=== PATIENT | female | born 1975 | race Asian ===

== ENCOUNTER 2017-04-06 00:15 | Inpatient (IN) | payer SELFPAY ==
[~2017-04-06] VITALS: Ht 158 cm; Wt 67.1 kg
[2017-04-06] MEDS ORDERED: PROMETHAZINE 25 MG/ML VIAL IVP PRN (01:40)
[2017-04-06] MEDS ORDERED: NALBUPHINE HYDROCHLORIDE 10 MG/ML VIAL IVP ONE (01:40)
[2017-04-06] MEDS: LACTATED RINGERS 1,000 ML IV SCH ×2 (01:44→02:45)
[2017-04-06] MEDS ORDERED: CITRIC ACID/SODIUM CITRATE 30 ML UDC PO ONE (01:50)
[2017-04-06 02:17] LABS: BASOPHILS # (AUTO) 0.1 K/uL (0.00-0.22); BASOPHILS % (AUTO) 1.4 % (0.0-2.0); EOSINOPHILS # (AUTO) 0.1 K/uL (0-0.4); EOSINOPHILS % (AUTO) 1.3 % (0.0-4.0); HEMATOCRIT 32.3 % (36-48); HEMOGLOBIN 10.5 g/dL (12.0-16.0); LYMPHOCYTES # (AUTO) 1.2 K/uL (2.5-16.5); LYMPHOCYTES % (AUTO) 18.2 % (20.5-51.1); MEAN CORPUSCULAR HEMOGLOBIN 30 pg (27-31); MEAN CORPUSCULAR HGB CONC 32 g/dL (33-37); MEAN CORPUSCULAR VOLUME 91 fL (80-94); MONOCYTES # (AUTO) 0.4 K/uL (0.8-1.0); MONOCYTES % (AUTO) 6.3 % (1.7-9.3); NEUTROPHILS # (AUTO) 4.8 K/uL (1.8-7.7); NEUTROPHILS % (AUTO) 72.8 % (42.2-75.2); PLATELET COUNT (AUTO) 183 K/uL (140-450); RED BLOOD CELL COUNT(AUTO) 3.55 MIL/uL (4.20-5.40); RED CELL DISTRIBUTION WIDTH 14.9 % (11.6-13.7); WHITE BLOOD COUNT (AUTO) 6.6 K/uL (4.8-10.8)
[2017-04-06 02:19] LABS: APPEARANCE,URINE SL CLOUDY (CLEAR); BILIRUBIN,URINE NEGATIVE (NEGATIVE); BLOOD, URINE TRACE-L (NEGATIVE); COLOR,URINE YELLOW (YELLOW); LEUKOCYTE ESTERASE ,URINE TRACE (NEGATIVE); NITRITE, URINE NEGATIVE (NEGATIVE); UGLUCOSE NEGATIVE (NEGATIVE)
[2017-04-06 02:30] LABS: ALBUMIN 2.6 g/dL (3.4-5.0); ANION GAP 14.4 (8-16); CARBON DIOXIDE 21.2 mmol/L (21-32); CREATININE 0.6 mg/dL (0.6-1.3); POTASSIUM 3.6 mmol/L (3.5-5.1); TOTAL BILIRUBIN 0.3 mg/dL (0.0-1.0)
[2017-04-06] MEDS ORDERED: PREN-546 PO ×2 (02:41)
[2017-04-06] MEDS ORDERED: FERR325E14 PO (02:41)
[2017-04-06 02:55] VITALS: BP 115/76
[2017-04-06 03:53] LABS: RBC,URINE 0-5 (RARE) /HPF (0-5)
[2017-04-06 03:54] LABS: WBC,URINE 0-5 (RARE) /HPF (0-5)
[2017-04-06] MEDS ORDERED: CITRIC ACID/SODIUM CITRATE 30 ML UDC ONE (05:37)
[2017-04-06] MEDS ORDERED: ceFAZolin 1,000 MG VIAL ONE (05:38)
[2017-04-06] MEDS ORDERED: ePHEDrine 50 MG/ML VIAL IV ONE (06:00)
[2017-04-06] MEDS ORDERED: OXYTOCIN 10 UNITS/ML VIAL ONE (06:07)
[2017-04-06] MEDS ORDERED: METHYLERGONOVINE 0.2 MG/ML AMP ONE (06:08)
[2017-04-06] MEDS ORDERED: TRIAMCINOLONE 40 MG/ML 5ML VIAL ONE (06:08)
[2017-04-06] MEDS ORDERED: fentaNYL 0.05 MG/ML VIAL ONE (06:14)
[2017-04-06] MEDS ORDERED: MIDAZOLAM 2 MG/2 ML VIAL ONE (06:14)
[2017-04-06] MEDS ORDERED: MORPHINE PRES FREE 10 MG/10 ML AMP IV ONE (06:15)
[2017-04-06] MEDS ORDERED: KETAMINE 500 MG/5 ML VIAL ONE (06:15)
[2017-04-06] MEDS ORDERED: ONDANSETRON 4 MG/2 ML VIAL IVP PRN (06:35)
[2017-04-06] MEDS ORDERED: KETOROLAC 30 MG/ML VIAL IVP PRN (06:35)
[2017-04-06] MEDS ORDERED: diphenhydrAMINE 50 MG/ML VIAL IVP PRN (06:35)
[2017-04-06] MEDS ORDERED: HYDROcodone/APAP 5/325 MG 1 TAB TAB PO PRN (07:05)
[2017-04-06] MEDS ORDERED: MEASLES, MUMPS, AND RUBELLA 1 VIAL SQVAC PRN (07:05)
[2017-04-06] MEDS ORDERED: TEMAZEPAM 15 MG CAP PO PRN (07:05)
[2017-04-06] MEDS ORDERED: METHYLERGONOVINE 0.2 MG/ML AMP IM PRN (07:05)
[2017-04-06] MEDS ORDERED: SIMETHICONE 80 MG TAB.CHEW PO PRN (07:05)
[2017-04-06] MEDS ORDERED: TRIMETHOBENZAMIDE 200 MG/2 ML SYR IM PRN (07:05)
[2017-04-06] MEDS ORDERED: oxyCODONE/APAP 5/325 MG 1 TAB TAB PO PRN (07:05)
[2017-04-06] MEDS ORDERED: METHYLERGONOVINE 0.2 MG TAB PO SCH (07:10)
--- NOTE | 2017-04-06 09:20 | NUR ---
PATIENT HAS BEEN SCREENED AND CATEGORIZED LOW NUTRITION RISK. PATIENT WILL BE SEEN WITHIN 7 DAYS OF ADMISSION. 04/12/[address]
[2017-04-06] MEDS: OXYTOCIN 20 UNITS in LACTATED RINGERS 1,000 ML IV SCH ×2 (10:25→18:15)
[2017-04-06 13:40] LABS: RAPID PLASMA REAGIN NON-REACTIVE (Non Reactiv)
[2017-04-06] MEDS: DOCUSATE SOD/SENNA 50/8.6 MG 1 TAB PO SCH (21:00)
[2017-04-07] MEDS ORDERED: OXYTOCIN 10 UNITS/ML VIAL ONE (01:54)
[2017-04-07 07:44] LABS: BASOPHILS % (AUTO) 0.3 % (0.0-2.0); EOSINOPHILS # (AUTO) 0.1 K/uL (0-0.4); EOSINOPHILS % (AUTO) 0.7 % (0.0-4.0); HEMATOCRIT 26.8 % (36-48); LYMPHOCYTES # (AUTO) 0.6 K/uL (2.5-16.5); LYMPHOCYTES % (AUTO) 6.4 % (20.5-51.1); MEAN CORPUSCULAR HEMOGLOBIN 31 pg (27-31); MEAN CORPUSCULAR HGB CONC 34 g/dL (33-37); MEAN CORPUSCULAR VOLUME 91 fL (80-94); MONOCYTES # (AUTO) 0.4 K/uL (0.8-1.0); MONOCYTES % (AUTO) 4.2 % (1.7-9.3); NEUTROPHILS # (AUTO) 8.9 K/uL (1.8-7.7); NEUTROPHILS % (AUTO) 88.4 % (42.2-75.2); PLATELET COUNT (AUTO) 150 K/uL (140-450); RED BLOOD CELL COUNT(AUTO) 2.95 MIL/uL (4.20-5.40)
[2017-04-07] MEDS: IBUPROFEN 800 MG TAB PO PRN ×2 (08:34→14:39)
[2017-04-07] MEDS: DOCUSATE SOD/SENNA 50/8.6 MG 1 TAB PO SCH (21:00)
[2017-04-08] MEDS: DOCUSATE SOD/SENNA 50/8.6 MG 1 TAB PO SCH (20:55)
[2017-04-09] MEDS: DOCUSATE SOD/SENNA 50/8.6 MG 1 TAB PO SCH (21:00)
== END 2017-04-10 10:50 | disposition home or self-care (01) | DRG 766 ==
LOC: MLD 00:15 → MFCC 07:58
PROVIDERS: ADMIT Obstetrics & Gynecology; ATTEND Obstetrics & Gynecology
PROC: 10D00Z1 Extraction of Products of Conception, Low, Open Approach (ICD-10-PCS; principal; 2017-04-06 06:00)
DX: O34.211 Maternal care for low transverse scar from previous cesarean delivery (principal); Z28.21 Immunization not carried out because of patient refusal; Z37.0 Single live birth; Z3A.39 39 weeks gestation of pregnancy
CPT/HCPCS: 36415; 51702; 80053; 81001; 85025; 86592; 86886; 86900; 86901; J0690; J2210; J2250; J2270; J2405; J2590; J3010; J3301; J7060; J7120